=== PATIENT | female | born 1960 | race Caucasian/White ===

== ENCOUNTER → 2020-01-22 14:48 | Outpatient (CLI) | payer BC, SELFPAY ==
--- NOTE | ~2020-01-22 | MM_ITS ---
EXAMINATION: MM screening claire BI w sin HISTORY: Screening mammogram TECHNIQUE: Craniocaudal and mediolateral oblique 3-D tomosynthesis images were obtained and synthetic 2-D images were generated. CAD analysis was submitted and interpreted. COMPARISON: Comparison to multiple prior studies sequentially, with oldest reviewed study dated 09/2010. BREAST PARENCHYMAL COMPOSITION: There are scattered areas of fibroglandular density. FINDINGS: There is focal asymmetry posteriorly in the left breast overlying the pectoralis muscle on MLO view. The right breast is stable without evidence for malignancy. IMPRESSION: 1. Focal asymmetry posteriorly in the left breast on MLO view overlying the pectoralis muscle. 2. Additional spot compression and mediolateral views with possible follow-up breast ultrasound recom mended. BI-RADS Category 0: Incomplete: Needs additional imaging evaluation. Reviewed, dictated and finalized at location A. IMPRESSION: 1. Focal asymmetry posteriorly in the left breast on MLO view overlying the pec toralis muscle. 2. Additional spot compression and mediolateral views with possible follow-up b reast ultrasound recommended. BI-RADS Category 0: Incomplete: Needs additional imaging evaluation.
== END ==
PROVIDERS: Visit Provider Nurse Practitioner
DX: Z12.31 Encounter for screening mammogram for malignant neoplasm of breast (principal); R92.8 Other abnormal and inconclusive findings on diagnostic imaging of breast
CPT/HCPCS: 77063; 77067

== ENCOUNTER → 2020-02-15 07:52 | Outpatient (CLI) | payer BC, SELFPAY ==
--- NOTE | ~2020-02-15 | MM_ITS ---
EXAMINATION: MM diagnostic mammo unilat LT HISTORY: Follow-up left breast asymmetry TECHNIQUE: Additional 3-D tomosynthesis images of the left breast were performed and synthetic 2-D im ages were generated. CAD analysis was submitted and interpreted. COMPARISON: Comparison to multiple prior studies sequentially, with oldest reviewed study dated 09/24. BREAST PARENCHYMAL COMPOSITION: Breast composed of scattered areas of fibroglandular density. FINDINGS: There are no suspicious masses, calcifications or architectural distortion in the left rory st to suggest malignancy. IMPRESSION: 1. No mammographic evidence for malignancy in the left breast. 2. Routine yearly screening mammogram and regular clinical breast examination are recommended. BI-RADS Category 1: Negative Reviewed, dictated and finalized at location A. IMPRESSION: 1. No mammographic evidence for malignancy in the left breast. 2. Routine yearly screening mammogram and regular clinical breast examination a re recommended. BI-RADS Category 1: Negative
== END ==
PROVIDERS: Visit Provider Obstetrics & Gynecology Gynecology
DX: R92.8 Other abnormal and inconclusive findings on diagnostic imaging of breast (principal)
CPT/HCPCS: 77065

== ENCOUNTER 2020-06-23 14:24 | Outpatient (CLI) | payer BC, SELFPAY ==
--- NOTE | ~2020-06-23 | US_ITS ---
US art doppler w press LE BI INDICATION: Claudication TECHNIQUE: Segmental pressures and plethysmographic and Doppler waveforms of the brachial and lower e xtremity arteries were obtained. COMPARISON: None. FINDINGS: Right and left brachial artery pressures of 135 mm Hg and 1:30 mm Hg, respectively, are concordant (n ormal difference <= 30 mmHg). The right ankle-brachial index (GITA) is 1.16 (normal >= 0.9-1.0). The right great toe-brachial index (TBI) is 0.61 (normal >= 0.60). The left GITA is 1.12. The left TBI is 0.76. IMPRESSION: 1. Normal bilateral ankle and toe brachial indices. Reviewed, dictated and finalized at location A. ER WASHER
== END 2020-06-23 14:25 | disposition home or self-care (01) ==
PROVIDERS: PCP Emergency Medicine; Visit Provider Emergency Medicine
DX: I73.9 Peripheral vascular disease, unspecified (principal)
CPT/HCPCS: 93923

== ENCOUNTER 2021-04-20 07:48 | Outpatient (CLI) | payer OTHER, SELFPAY ==
--- NOTE | ~2021-04-20 | DEXA_ITS ---
Bone Density Report Name: Candice Addison Age: 60 Sex: Female Ethnicity: White Date of : 1960 Indication: postmenopausal; height loss; hysterectomy; Referring Provider: Lakeshia, Lachelle Study: Bone densitometry was performed. Exam Date: April 20, 2021 Accession number: [id number] Bone Density: Region BMD T-score Z-score Classification AP Spine (L1-L4) 1.237 1.7 3.2 Normal Femoral Neck (Left) 0.709 -1.3 0.0 Osteopenia Total Hip (Left) 0.891 -0.4 0.6 Normal Total Hip Bilateral Avg 0.922 -0.2 0.9 Normal Femoral Neck (Right) 0.785 -0.6 0.7 Normal Total Hip (Right) 0.953 0.1 1.1 Normal World Health Organization criteria for BMD impression classify patients as: Normal (T-score at or above -1.0), Osteopenia (T-score between -1.0 and -2.5), or Osteoporosis (T-score at or below -2.5). 10-year Fracture Risk(1): Major Osteoporotic Fracture 6.5% Hip Fracture 0.4% Reported Risk Factors: [place] (), Neck BMD=0.709, BMI=41.6 (1) FRAX(R) Version 3.08. Fracture probability calculated for an untreated patient. Fracture probability may be lower if the patient has received treatment. Clinical Information Provided by Patient: Has used the following medications: Vitamin D Has the following medical conditions: Hysterectomy Patient maximum height was 66 Menopause Age: 50 No regular weight bearing exercise Drinks caffeinated beverages Onset of menses at age 14 Number of children 2 Impression: The patient has low bone mass, based on the Left Femoral Neck T-score. The patient has an estimated ten-year risk of hip fracture of 0.4% and an estimated ten-year risk of major fracture of 6.5%, based on the WHO FRAX algorithm. Discussion: BONE DENSITY IS LOW AT ONE OR MORE SKELETAL SITES. This patient's lowest T-score is low at one or more skeletal sites. It meets the World Health Organization's (WHO) criteria for ?low bone mass? (T-score between -1.0 and -2.5). The patient's 10-year risk of fracture as calculated by FRAX is less than the threshold where pharmacological therapy is recommended by the National Osteoporosis Foundation (NOF). However, all treatment decisions require clinical judgment and consideration of individual patient factors, including patient preferences, comorbidities, previous drug use, risk factors not captured in the FRAX model (e.g., frailty, falls, vitamin D deficiency, increased bone turnover, interval significant decline in bone density) and possible under or overestimation of fracture risk by FRAX. The patient should follow a healthful lifestyle (good nutrition with adequate calcium and vitamin D, and appropriate weight-bearing exercise). Follow-Up: Consider repeating this study in 2 to 3 years to reassess this patient's status, or sooner if there is some new clinical indicat
--- NOTE | ~2021-04-20 | MM_ITS ---
EXAMINATION: MM screening claire BI w sin HISTORY: Screening mammogram TECHNIQUE: Craniocaudal and mediolateral oblique 3-D tomosynthesis images were obtained and synthetic 2-D images were generated. CAD analysis was submitted and interpreted. COMPARISON: 02/15/2020 diagnostic left mammogram 01/22/2020, 09/05/2018, 04/15/2017 bilateral digital screening mammogram examinations BREAST PARENCHYMAL COMPOSITION: The breasts are almost entirely fatty. FINDINGS: There is no evidence of suspicious mass, calcification, or architectural distortion to sugg est malignancy in either breast. There has been no suspicious interval change. IMPRESSION: 1. No mammographic evidence of malignancy. 2. Recommend routine screening mammography in one year. BI-RADS Category 1: Negative Reviewed, dictated and finalized at location A.
== END 2021-04-20 07:49 | disposition home or self-care (01) ==
LOC: ANHIMG 07:50
PROVIDERS: PCP Internal Medicine; Visit Provider Nurse Practitioner
DX: Z12.31 Encounter for screening mammogram for malignant neoplasm of breast (principal); Z78.0 Asymptomatic menopausal state; M85.852 Other specified disorders of bone density and structure, left thigh
CPT/HCPCS: 77063; 77067; 77080

== ENCOUNTER 2021-11-16 02:38 | Day surgery (SDC) | payer OTHER, SELFPAY ==
[2021-10-26 15:05] VITALS: BMI 36.4
[2021-11-16 06:19] VITALS: BP 143/76; PULSE 71; RESP 16; TEMP 36.3; O2SAT 99; BMI 35.9
[2021-11-16] MEDS: LACTATED RINGERS 1,000 ML 150 ML IV CONT (06:30)
--- NOTE | 2021-11-16 07:17 | P.CONGI_ITS ---
Assessment and Plan Assessment and plan (1) Family history of colon cancer in father: Code(s): Z80.0 - Family history of malignant neoplasm of digestive organs Status: Acute Assessment and Plan: Patient has a family history of colon cancer in father. For this reason surveillance colonoscopy advised every 5 years. (2) History of colon polyps: Code(s): Z86.010 - Personal history of colonic polyps Status: Acute Assessment and Plan: Patient has had a prior history of colon polyps. For this reason surveillance colonoscopy advised as well as because of family history. GI Consult Note Consult date/time: 11/16/21 07:17 HPI: Candice Addison is a 61 year old female Presents for screening colonoscopy. Patient's current weight appetite bowel movements are normal. She denies abdominal pain. She has had no bleeding. Family history is significant that her father had colon cancer. Patient does have a prior history colonoscopy at one point had colon polyps. She presents today for neoplasia screening. Review of Systems Review of Systems: All systems reviewed & are unremarkable except as noted in HPI and below [facility] Family History Family History (Updated 02/28/14 @ 07:13 by DOCTOR UNKNOWN) Other Family history of lung cancer Social History Social History Smoking status: Never smoker Alcohol intake: current Substance use type: does not use Living arrangements: with family Meds Home Medications and Allergies Home Medications Medication Instructions Recorded Confirmed Type bupropion HCl 150 mg PO DAILY 10/26/21 11/16/21 History ergocalciferol (vitamin D2) 500,000 unit PO DAILY 10/26/21 11/16/21 History sertraline 50 mg PO DAILY 10/26/21 11/16/21 History Allergies Allergy/AdvReac Type Severity Reaction Status Date / Time No Known Allergies Allergy Verified 11/16/21 06:17 Vital Signs Vital Signs - 24 hr 11/16/21 06:19 Temperature 97.3 F L Pulse Rate 71 Respiratory Rate 16 Blood Pressure 143/76 H Pulse Oximetry 99 Exam Narrative: Physical exam reveals patient to be alert. Vital signs stable. HEENT exam is unremarkable. Patient is anicteric. Lungs are clear to auscultation and percussion. Heart is without murmur or extra sounds. Abdominal exam bowel sounds are present soft nontender with no hepatosplenomegaly. Digital external rectal exam is normal.
--- NOTE | 2021-11-16 07:23 | P.PNAN_ITS ---
Anes - Initial Pre Proc Eval Procedure: Operation Date: 11/16/21 07:30 Proposed Procedures p Screening Colonoscopy - Orion Vanegas MD Date/Time: 11/16/21 07:23 Surgeon: Orion Vanegas MD Pre Op Diagnosis: hx of colon polyps, family hx of colon ca,neoplasm Patient Data Age: 61 Gender: F Height: 1.68 m Weight: 101 kg Last Vital Signs Temp 97.3 F L 11/16/21 06:19 Pulse 71 11/16/21 06:19 Resp 16 11/16/21 06:19 BP 143/76 H 11/16/21 06:19 Pulse Ox 99 11/16/21 06:19 Allergies Allergy/AdvReac Type Severity Reaction Status Date / Time No Known Allergies Allergy Verified 11/16/21 06:17 Home Medications Medication Instructions Recorded Confirmed Type bupropion HCl 150 mg PO DAILY 10/26/21 11/16/21 History ergocalciferol (vitamin D2) 500,000 unit PO DAILY 10/26/21 11/16/21 History sertraline 50 mg PO DAILY 10/26/21 11/16/21 History Patient hx anesthesia problems: none Family hx anesthesia problems: none Results Review: All pre-operative results and documents have been reviewed as part of the pre-operative evaluation. [facility] Family History Family History (Updated 02/28/14 @ 07:13 by DOCTOR UNKNOWN) Other Family history of lung cancer Social History Social History Smoking status: Never smoker Alcohol intake: current Substance use type: does not use Living arrangements: with family Anes - Eval Final PreProcedure Day of Procedure 11/16/21 07:23 Patient weight: obese Heart: regular rate and rhythm Lungs: clear to auscultation Airway: Mallampati scale class II Neurological: alert and oriented Last oral intake: >/= 8 hours ASA classification: III Emergent: no Anesthetic plan: proceed Anesthesia type and monitoring: general GIVS and standard monitoring Results Review: All pre-operative results and documents have been reviewed as part of the pre-operative evaluation. Informed Consent: The patient's anesthetic plan and its attendant risks and benefits were discussed with the patient/family/POA. Questions were solicited and answers provided to the satisfaction of the patient/family/POA.
[2021-11-16 07:56] VITALS: BP 100/59; PULSE 62; RESP 22; O2SAT 100
[2021-11-16 08:06] VITALS: BP 115/74; PULSE 59; RESP 17; O2SAT 100
[2021-11-16 08:16] VITALS: BP 117/71; PULSE 56; RESP 14; O2SAT 100
== END 2021-11-16 08:56 | disposition home or self-care (01) ==
PROVIDERS: PCP Internal Medicine; Visit Provider Internal Medicine Gastroenterology
PROC: 0DJD8ZZ Inspection of Lower Intestinal Tract, Via Natural or Artificial Opening Endoscopic (ICD-10-PCS; CPT 45378; principal; 2021-11-16 07:30)
DX: Z12.11 Encounter for screening for malignant neoplasm of colon (principal); K64.8 Other hemorrhoids; K57.30 Diverticulosis of large intestine without perforation or abscess without bleeding; Z86.010 Personal history of colon polyps; Z80.0 Family history of malignant neoplasm of digestive organs; E66.9 Obesity, unspecified; Z68.35 Body mass index [BMI] 35.0-35.9, adult
CPT/HCPCS: 45378; J2704; J7120

== ENCOUNTER → 2022-11-30 15:39 | Outpatient (CLI) | payer OTHER, SELFPAY ==
--- NOTE | ~2022-11-30 | XR_ITS ---
EXAM: XR lumbar spine 2-3V DATE: 11/30/2022 16:02 HISTORY: acute bilateral low back pain with r side sciatica . COMPARISON: None available. FINDINGS: 5 nonrib-bearing lumbar-type vertebral bodies. Pedicles intact. 2 mm retrolistheses at L1- 2 L2-3 and L3-4. 3 mm anterolisthesis at L4-5. Multilevel disc space narrowing and marginal osteophyt osis, with vacuum phenomenon at L5-S1. Incidental note of severe degenerative change in the thoracic spine. Severe lower lumbar facet hypertrophy and sclerosis IMPRESSION: Multilevel grade 1 listheses. Multilevel degenerative disc disease, severe at L5-S1. Corinna re lower lumbar facet arthropathy. Reviewed, dictated and finalized at location K. IMPRESSION: Multilevel grade 1 listheses. Multilevel degenerative disc disease, severe at L5-S1. Severe lower lumbar facet arthropathy.
== END ==
PROVIDERS: PCP Internal Medicine; Visit Provider Internal Medicine
DX: M54.41 Lumbago with sciatica, right side (principal); M51.37 Other intervertebral disc degeneration, lumbosacral region
CPT/HCPCS: 72100

== ENCOUNTER 2023-05-23 14:25 | Outpatient (CLI) | payer OTHER, SELFPAY ==
--- NOTE | ~2023-05-23 | MM_ITS ---
EXAMINATION: MM screening claire BI w sin HISTORY: Screening mammogram TECHNIQUE: Craniocaudal and mediolateral oblique 3-D tomosynthesis images were obtained and synthetic 2-D images were generated. CAD analysis was submitted and interpreted. COMPARISON: 04/20/2021 bilateral screening mammogram 02/15/2020 diagnostic left mammogram 01/22/2020 bilateral screening mammogram BREAST PARENCHYMAL COMPOSITION: The breasts are almost entirely fatty. FINDINGS: There is no evidence of suspicious mass, calcification, or architectural distortion to sugg est malignancy in either breast. There has been no suspicious interval change. IMPRESSION: 1. No mammographic evidence of malignancy. 2. Recommend routine screening mammography in one year. BI-RADS Category 1: Negative Reviewed, dictated and finalized at location A. ISH TEACHER
== END 2023-05-23 14:26 | disposition home or self-care (01) ==
LOC: ANHIMG 14:28
PROVIDERS: PCP Internal Medicine; Visit Provider Nurse Practitioner
DX: Z12.31 Encounter for screening mammogram for malignant neoplasm of breast (principal)
CPT/HCPCS: 77063; 77067